=== PATIENT | male | born 1940 | race Caucasian/White ===

== ENCOUNTER 2017-12-28 14:26 | Emergency (ER) | payer MEDICARE, BC ==
[~2017-12-28] VITALS: Ht 177.8 cm; Wt 97.0 kg
[2017-12-28] MEDS ORDERED: BUPIVAcaine/PF 2.5 mg/ml (0.25%) 30ml vial IJ ONE (14:50)
[2017-12-28] MEDS ORDERED: TETanus/Pertussis (Acell)/Diphther VAC/PF (Tdap-Adult) 0.5ml syringe IM ONE (14:50)
[2017-12-28] MEDS ORDERED: BUPIVAcaine/PF 2.5mg/ml (0.25%) 10ml vial IJ ONE (14:55)
[2017-12-28] MEDS ORDERED: HYDR-565 PO (16:37)
[2017-12-28 16:42] VITALS: BP 162/99
== END 2017-12-28 16:43 | disposition home or self-care (01) ==
LOC: ER 14:27
DX: S02.2XXA Fracture of nasal bones, initial encounter for closed fracture (principal); S80.212A Abrasion, left knee, initial encounter; S00.81XA Abrasion of other part of head, initial encounter; S09.90XA Unspecified injury of head, initial encounter; M25.511 Pain in right shoulder; M25.512 Pain in left shoulder; I48.91 Unspecified atrial fibrillation; Z98.890 Other specified postprocedural states; Z88.5 Allergy status to narcotic agent; W01.0XXA Fall on same level from slipping, tripping and stumbling without subsequent striking against object, initial encounter; Y93.01 Activity, walking, marching and hiking; Y92.488 Other paved roadways as the place of occurrence of the external cause; Y99.8 Other external cause status
CPT/HCPCS: 70450; 70486; 73020; 90471; 90715; 99284